=== PATIENT | male | born 1990 | race Caucasian/White ===

== ENCOUNTER → 2017-04-22 12:50 | Outpatient (CLI) | payer BC, SELFPAY | PROVIDERS: Family Provider Family Medicine; PCP Family Medicine; Visit Provider Otolaryngology | DX: J02.9 Acute pharyngitis, unspecified (principal) | CPT/HCPCS: 87070 ==

== ENCOUNTER → 2017-04-28 16:45 | Outpatient (CLI) | payer BC, SELFPAY ==
--- NOTE | 2017-04-28 16:49 | CT_ITS ---
STUDY: CT MAXILLOFACIAL SINUSES REASON FOR EXAM: Male, 27 years old. Sinusitis. RADIATION DOSAGE (If Supplied By Facility): CTDIvol = ( 33.06 ) mGy, DLP = ( 883.43 ) mGycm TECHNIQUE: The patient was scanned in a multi detector CT scanner. High resolution axial imaging was performed without the administration of intravenous contrast material. Sagittal and coronal images were reconstructed. Individualized dose optimization techniques were used for this CT. COMPARISON: None. FINDINGS: FRONTAL SINUSES: Normal aeration, without mucosal inflammatory disease. ETHMOIDAL SINUSES: Normal aeration, without mucosal inflammatory disease. MAXILLARY SINUSES: Near total opacification of the left maxillary sinus. The right maxillary sinus is clear. SPHENOIDAL SINUSES: Normal aeration, without mucosal inflammatory disease. There is patency of the bilateral maxillary infundibuli with normal uncinate processes, ethmoid bullae, and hiatus semilunaris. Normal bilateral middle turbinates. Normal bilateral inferior turbinates. Normal midline nasal septum. There is patency of the bilateral nasal airways. The visualized osseous structures are normal. The visualized bilateral orbital contents are normal. CT/Sinus/Facial Bone IMPRESSION: Near total opacification of the left maxillary sinus. Otherwise, clear sinuses. Electronically Signed: Yuval Charles, at 17:41 EST Tel , Service support ,
== END ==
PROVIDERS: Family Provider Family Medicine; PCP Family Medicine; Visit Provider Otolaryngology
DX: J32.9 Chronic sinusitis, unspecified (principal)
CPT/HCPCS: 70486

== ENCOUNTER → 2019-05-17 09:21 | Outpatient (CLI) | payer BC, SELFPAY ==
[2019-05-01 06:54] VITALS: BMI 28.8
[2019-05-17 13:14] LABS: AST(SGOT) 28 U/L (15-37); Alanine Aminotransfer ALT/SGPT 70 U/L (16-61); Alkaline Phosphatase 64 U/L (45-117); Bilirubin, Direct 0.06 mg/dL (0.00-0.30); GGTP 27 U/L (15-85); Globulin 3.7 g/dL (2.2-4.2); Protein, Total 7.7 g/dL (6.4-8.2)
[2019-05-17 14:00] LABS: Hepatitis B Surface Antibody Non-Reactive; Hepatitis B Surface Antigen Non-Reactive (Nonreactive); Hepatitis C Antibody Non-Reactive (Nonreactive)
[2019-05-18 05:06] LABS: Hepatitis A IgM Antibody Negative (Negative)
[2019-05-18 15:12] LABS: Hepatitis A AB, Total Negative (Negative)
[2019-05-18 17:50] LABS: ANTINUCLEAR ANTIBODIES DIRECT Negative (Negative)
== END ==
PROVIDERS: PCP Family Medicine; Referring Provider Family Medicine; Visit Provider Family Medicine
DX: R74.0 Nonspecific elevation of levels of transaminase and lactic acid dehydrogenase [LDH] (principal)
CPT/HCPCS: 36415; 80076; 82977; 86038; 86706; 86708; 86709; 86803; 87340

== ENCOUNTER → 2020-01-07 14:19 | Outpatient (CLI) | payer OTHER, SELFPAY ==
[2019-08-07 06:27] VITALS: BMI 28.8
== END ==
PROVIDERS: PCP Family Medicine; Referring Provider Family Medicine; Visit Provider Family Medicine
DX: Z20.828 Contact with and (suspected) exposure to other viral communicable diseases (principal)
CPT/HCPCS: 87635; U0003

== ENCOUNTER → 2020-01-20 10:19 | Outpatient (CLI) | payer OTHER, SELFPAY ==
[2019-08-07 06:27] VITALS: BMI 28.8
== END ==
PROVIDERS: PCP Family Medicine; Visit Provider Physician Assistant Surgical
DX: U07.1 COVID-19 (principal)
CPT/HCPCS: 87635; C9803; U0003

== ENCOUNTER 2020-05-29 08:30 | Outpatient (RCR) | payer BC, OTHER, SELFPAY ==
[2019-08-07 06:27] VITALS: BMI 28.8
--- NOTE | 2020-04-24 09:57 | HP.OTEVAL ---
Patient's Visit Information JAYLIN EM III is a 30 year old M, referred to Occupational Therapy by Dr. Tai Robles MD, with a diagnosis of left scaphoid fx. Date of Evaluation: 04/24/20 Occupational Therapist: Tiffanie Quezada, OTR/Omid, CHT - Subjective This 30 year old male was seen for OT eval with dx of scaphoid of left wrist with non union. pt states he fell about a year ago and just thought he sprained his wrist- pt states as his wrist did not improve he went to at [facility] and they referred pt to Dr. Mcgee. pt states had sx on . scapohid screw for repair. pt states he was casted until . pt arrives with orders for ROM no wt.bearing. denies numbness/tingling. pt works for [employer]- will return in June - Pain left wrist 4 Pain Intensity Range: 4 - ROM Forearm: right/left sup/pron is WNL some discomfort with supination Wrist: right 55/70 left 35/35 ROM Comments: Left RD 10 UD 30. rigth UD 25 RD 20. pt demo with limited left wrist ROM - Strength Railroad Carman: right 120 left NT Lateral Pinch: right 22 left NT Tripod Pinch: right 36 left NT Strength Comments: Will test left principal research economist/pinch strength when pt is cleared for wt.bearing. - Sensation Sensation Comments: denies - Quick DASH-Disab of Arm,Shoulder& Hand Quick DASH Score: 58.3325 - Goals Goal:: when released to strengthen At time of dc pt will demo a left principal research economist strength of 85# or greater to return to PLOF. Goal:: pt will demo left wrist flex to 60* and ext to 55* or greater to return pt to PLOF by d/c. pt will demo a increase in RD and UD equal to unaffected wrist by d/c to increase pts ind. with ADls and IADLs. Goal:: pt will report no pain greater than 1/10 with use of left UE with ADLs and IADLs. - Rehabilitation General Assessment: S/P 9 weeks 3 days from Scaphoid middle third fx repair with screw fixation. Pt demo with with limited left wrist ROM and limited use of left UE with ADls and IADLs. Pt would benefit from skilled OT services 1x week for 8 weeks. Therapy will foucs on AROM wrist flex/ext, dart throwers motion, RD/UD and forearm sup/pron. once pt has gaind ROM and cleared by surgon to initiate strengthening. Pt demo understanding and agree to POC. Rehabilitation Potential: Excellent - Anticipated Interventions A/AAROM/PROM, Strengthening, Scar Care, Triggerpoint Release, Modalities, Orthoses, Ergonomic Education - Visit Plan Frequency: 1-2x /Week Duration: 3 Months TEXT: Thank you for the opportunity to evaluate your patient. For Medicare and Medicare HMO plans, please review the plan of care and approve it. It will need to be FAXED BACK to us at [phone] for Medicare purposes. Please let me know if there are questions or concerns regarding this plan of care. Physician Signature: Date:
--- NOTE | 2020-05-08 09:02 | OTREVAL_ITS ---
Dr. Tai Robles MD, It has been my pleasure to treat JAYLIN KEBEDE CONFER III over the last 3 visits for left scaphoid fx. Please see the progress note below for an update on the occupational therapy plan of care! Subjective: pt arrives to session 11 weeks s/p from scaphid fx/ pinning(screw) pt states min pain most of the time- state was driving and turning streering wheel and had a pain sharp/shooting really fast pain. pt states he continues to have click with motion of wrist. Objective/Function: left wrist 55/60. RD 15. UD 25. pt demo good ROM gains in the last two weeks. please advise if pt can progress to wt.B. and strengthening. Plan Frequency: 1-2x /Week Duration: 3 Months Plan: pt to return to for re-eval to see if pt can progress with strengthening. Goals - Goals Patient Goals: Regain Mobility, Regain Strength, Use Hand/Wrist/Arm Normally Again Goal:: when released to strengthen At time of dc pt will demo a left telephone answering service operator strength of 85# or greater to return to PLOF. Goal:: pt will demo left wrist flex to 60* and ext to 55* or greater to return pt to PLOF by d/c. pt will demo a increase in RD and UD equal to unaffected wrist by d/c to increase pts ind. with ADls and IADLs. Goal:: pt will report no pain greater than 1/10 with use of left UE with ADLs and IADLs. Anticipated Interventions Anticipated Interventions: A/AAROM/PROM, Strengthening, Scar Care, Triggerpoint Release, Modalities, Orthoses, Ergonomic Education Please do not hesitate to contact me at [phone] by phone or if you have questions or concerns regarding this new plan of care! Sincerely, Tiffanie Quezada, OTR/L, CHT
--- NOTE | 2020-09-08 07:54 | HP.OT.NRP ---
JAYLIN ARIN CABRERA CONFER III was seen in my office for initial evaluation on 04/24/20. The following Plan of Care was established for this patient: Initial Frequency: 1-2x /Week Initial Duration: 3 Months Plan: hold until bone healing better Anticipated Interventions: A/AAROM/PROM, Strengthening, Scar Care, Triggerpoint Release, Modalities, Orthoses, Ergonomic Education This patient was last seen in our office 05/29/20. Pertinent comments regarding their Occupational therapy will appear below: pt needing new sx pt d/c at this time. At this point I will be discontinuing this patient from occupational therapy. I would be happy to see this patient again in the future if found appropriate by the physician. Thank you! Tiffanie Quezada, OTR/L, CHT
== END 2020-05-29 19:00 | disposition home or self-care (01) ==
LOC: OT 08:30
PROVIDERS: PCP Family Medicine
DX: S62.025D Nondisplaced fracture of middle third of navicular [scaphoid] bone of left wrist, subsequent encounter for fracture with routine healing (principal)
CPT/HCPCS: 97110; 97166; 97530; 97763

== ENCOUNTER → 2021-11-12 | Outpatient (CLI) | payer BC, SELFPAY | END | disposition home or self-care (01) | PROVIDERS: PCP Family Medicine; Visit Provider Family Medicine | DX: L05.91 Pilonidal cyst without abscess (principal) | CPT/HCPCS: 87070; 87205 ==

== ENCOUNTER 2022-02-14 10:04 | Day surgery (SDC) | payer BC, SELFPAY ==
[2022-02-14] VITALS (7 sets, daily range): BP systolic 140–170; BP diastolic 77–99; PULSE 58–74; RESP 16–18; TEMP 36.3–36.9; O2SAT 96–99; BMI 32.9
[2022-02-14] MEDS: Lactated Ringers 1,000 ML 15 ML IV (10:34)
--- NOTE | 2022-02-14 11:08 | PCM.HP.BLA ---
History and Physical Date of Admission: 02/14/22 Intake Vital Signs ? 01/19/2208:42 Height 6 ft 2 in Weight: 245 lb 6 oz BMI 31.5 BP 127/81 H Blood Pressure Location Rt brachial Position Sitting Respiration 18 Pulse 74 Pulse Source NIBP Temp 97.4 F L Temp Source Temporal Pulse Oximetry (%) 98 Oxygen Delivery Method room air Intake Visit Reasons:?F/U PILONIDAL CYST Chief Complaint: pilonidal cyst--discuss surgery Printer Assistant Required: No Is patient in pain?: No Allergies No Known Allergies Allergy (Verified 01/18/22 08:39) Medications multivitamin 1 tab PO DAILY 11/23/20 [History Confirmed 01/18/22] PFSH Medical History? Back pain Pilonidal cyst Pilonidal cyst with abscess Surgical History? History of surgery on left wrist Social History? Smoking Status:? Current every day smoker Smokeless tobacco user:? chewing tobacco alcohol intake:? current Alcohol type: beer and hard liquor HPI HPI HPI: Patient is a 31-year-old male following up for pilonidal cyst.? He says that the inflammation has down and he is feeling much better.? He is also requesting vasectomy at the same time.? Patient reports that his is on board. ROS General General: No weight change, appetite, fatigue, colon cancer, breast cancer or weakness HEENT HEENT: No difficulty swallowing, eye injury, eye surgery, swollen glands or hoarseness Endo Endocrine: No thyroid disease, diabetes mellitus, thyroid cancer, Hair loss, heat intolerance or cold intolerance Skin Skin: No rash or changing moles Breast Breast: No left breast lump, right breast lump, nipple discharge, breast pain, abnormal mammogram, abnormal US or breast enlargement Musc Musculoskeletal: No back problems, arthritis, rheumatoid arthritis, gout or joint pain Cardio Cardiovascular: No murmur, pacemaker, heart disease, atrial fibrillation, high blood pressure, heart attack, heart stent, palpitations, shortness of breat with exertion or chest pain Psych Psychiatric: Yes depression; No anxiety or hearing voices Resp Respiratory: No shortness of breath, No sleep apnea, No cough, No COPD, No asthma, No emphysema and No wheezing Gastro Gastrointestinal: No abdominal pain, No nausea or vomiting, No diarrhea, No constipation, No blood in stool, No acid reflux, No hemorrhoids, No ulcers, No gallbladder problem and No black,tarry stools Abiodun Hematologic: No blood thinners, No blood disorders, No bleeding, No anemia and No blood clots Neuro Neurologic: No system reviewed and no additional complaints, except as documented, No as per HPI, No abnormal gait, No abnormal hearing, No abnormal movements, No abnormal speech, No behavioral changes, No burning sensations, No confusion, No convulsions, No disequilibrium, No dizziness, No localized weakness, No frequent falls, No headache(s), No lack of coordination, No loss of vision, No memory loss, No numbness, No other visual disturbances, No radicular pain, No restless legs, No sensory deficit, No syncope, No tingling, No tremor(s), No weakness and No other Exam Const General: cooperative Orientation: alert and oriented x3 [facility] Head: normal to inspection Neck Neck: normal visual inspection and full ROM Chest Chest palpation & inspection: normal inspection of the chest Resp Effort & Inspection: normal respiratory effort Auscultation: clear to auscultation bilaterally Cardio Rate: regular rate Rhythm: regular rhythm GI Inspection: non-distended Palpation: soft and nontender Other: Patient has a pilonidal cyst with 3 pilonidal sinuses Skin General: no rashes or lesions noted Neuro General: patient alert and patient oriented x3 Extrem General: full ROM Psych Appearance: grossly normal Mental Status: mental status grossly normal Assessment and Plan Assessment and Plan (1) Pilonidal cyst: ?Status:?Acute ?Plan: The patient's inflammation around his pilonidal cyst has decreased.? I discussed pilonidal cystectomy with the patient with hopeful closure of the incision.? I also discussed possible drain placement or need for packing.? I discussed the procedure as well as the risks including but allergy to bleeding, infection, need for wound packing.? Patient understands and is willing to proceed with pilonidal cystectomy. (2) Sterilization consult: ?Status:?Acute ?Plan: I discussed bilateral partial vasectomy with the patient in detail. I discussed the procedure in detail as well as the risks of the procedure. I discussed the risks including but not limited to bleeding, infection, injury to spermatic cord, spermatocele. I discussed that this procedure is not perfect and there was a very small failure rate and I also discussed that this is a nonreversible procedure and that he would not be immediately sterile. I discussed that he would be considered sterile after two consecutive negative semen analysis tests. I recommended that the patient continue to use control until these tests are performed. The patient understands the risks and has has agreed to proceed with bilateral partial vasectomy in the operating room at the same time of his pilonidal cystectomy. Jose Sarah MD Pager: [facility] [address] [place] [address] Office: I have examined the patient and the H&P has been reviewed. There are no clinical changes since date of exam.
[2022-02-14] MEDS: Cefazolin 2 GM in 0.9% Normal Saline 100 ML IV (11:39)
--- NOTE | 2022-02-14 11:40 | VAS_PTH ---
PATIENT: JAYLIN AGUILAR III LOC: [facility] [place] U#:[id number] AGE/SX: 31/M ROOM: RE02/14/[address]: Dr. Jose Sarah MD : 1990 BED: DIS: 02/14/2022 SPEC #: [id number] RECD: 02/14/22 13:36 STATUS: PEE REQ #: [id number] OSEI: 02/14/22 11:[address]: Jose Sarah DEPT: SURGICAL PATHOLOGY RECD BY: Savana Zamora ENTERED: 02/15/22 07:37 SP TYPE: VAS OTHR DR: Dr. Tai Robles MD Tissues: A - Vas deferens, NOS B - Vas deferens, NOS C - PILONIDAL TISSUE Procedures: Surgery Specimen Level II Surgery Specimen Level III HEADER OPERATION: Pilonidal cyst excision PRE-OP DIAGNOSIS: Pilonidal cyst TISSUE SUBMITTED: A - Right vas deferens segment, B - Left vas deferens segment, C - Pilonidal cyst MICROSCOPIC DIAGNOSIS A. Right vas deferens, segmental vasectomy: Complete cross-section of vas deferens with no pathologic change. B. Left vas deferens, segmental vasectomy: Complete cross-section of vas deferens with no pathologic change. C. Pilonidal cyst, excision: Fibrofatty tissue with chronic inflammation. AM:suzette 02/17/2022 MICROSCOPIC DESCRIPTION Slides are reviewed. GROSS DESCRIPTION A - Received is one container designated right vas deferens segment. The specimen consists of a tubular segment of leon soft tissue measuring 0.8 cm in length and 0.4 cm in diameter. The specimen is sectioned and submitted entirely in one cassette. B - Received is one container designated left vas deferens segment. The specimen consists of a tubular segment of leon soft tissue measuring 0.8 cm in length and 0.4 cm in diameter. The specimen is sectioned and submitted entirely in one cassette. C - Received in fixative is one container labeled with the patient's name and designated pilonidal cyst. The specimen consists of multiple pieces of leon-yellow to hemorrhagic soft tissue that in aggregate measure 3.5 x 3 x 1 cm. No mass lesion is identified. Building Specialist sections are submitted in two cassettes. / SJ:suzette 02/15/2022 The rest of the specimen is submitted in one more cassette. / SJ:suzette 02/16/2022 TC:3 CPT: 79139 x2, 03099
[2022-02-14] MEDS: Bupivacaine Mpf 0.5% 30 ML VIAL (11:55)
--- NOTE | 2022-02-14 13:25 | PCM.OPRPT ---
Report of Operation Date of Procedure: 02/14/22 Pre-Operative Diagnosis: 1. Encounter for sterilization 2. Pilonidal cyst Post-Operative Diagnosis: Same Surgery/Procedure Performed:: 1. Bilateral partial vasectomy 2. Pilonidal cystectomy Specimen's removed: 1. Bilateral vas 2. Pilonidal cyst Description of Procedure: Patient was brought back to the operating room and general anesthesia was induced. The scrotum was prepped and draped in usual sterile fashion. On the right side a small incision was made in the side of the scrotum and the vas was grasped. It was dissected free and then clamped. A segment of vas was sharply removed and then a 3-0 chromic suture ligature was used on either end to ligate the free ends. Next they were returned to the scrotum and there was good hemostasis and the scrotal incision was closed with a 3-0 chromic suture. Next on the opposite side an incision was made in the left side of the scrotum and the vas was grasped and brought through the incision and dissected free from the surrounding structures. The vas was clamped proximally and distally and then a segment was removed and both ends were suture-ligated using 3-0 chromic suture. There is good hemostasis. The scrotum was closed with 3-0 chromic suture. Next the patient was placed in a prone jackknife position. The pilonidal area was cleared of hair and then prepped. An incision was made left of the midline and deepened to subcutaneous tissue. The sinus that was running the left of the incision was found and traced and the cyst was removed. Next dissection was performed directly deep to the sinuses and sinuses were removed and the entire cyst was removed. The cavity was irrigated and suctioned dry and hemostasis was obtained using electrocautery. The skin was closed with interrupted 3-0 Vicryl suture and then interrupted 3-0 nylon suture. Bandages were applied. Patient was then awoken and taken to PACU in stable condition. Admit VTE Documentation VTE Present on Admission: Yes
--- NOTE | 2022-02-14 13:29 | DCINST_ITS ---
Discharge Instructions Diet Discharge Diet: Light diet - advance as tolerated Activity Discharge Activity: May Not Drive (For 2 to 3 days or while on narcotic medications) and May Shower (Tomorrow. Towel dry the scrotal incisions and the backside. No creams or powders over the incisions.) May resume sexual activity in: 1 week Lifting Restrictions: 15 pounds for 1 week Additional Activity Instructions:: Sit on soft surfaces. Reduce spreading of the buttocks is much as possible. Dressing / Incision Call your doctor if your incision/area has: Continuous Slow Oozing, Sudden Increased Bleeding, Increased Pain/ Swelling, Increased Redness, Foul Smelling Discharge and Swelling at the incision site Call your doctor if you observe: Fever of 101 or Higher Change Dressing in: 1 day Cleanse incision/area with: Soap & Water Follow Up Care Please Follow Up With: Jose Sarah MD When: Please call to schedule 1 week follow up appointment. [phone] Test Results: Test results from this visit will be discussed in further detail at your follow- up appointment, if applicable. Discharge Plan Admission Attending Provider: Jose Sarah Primary Care Provider: Tai Robles Discharge Orders/Prescriptions Prescriptions: New oxycodone 5 mg tablet 5 - 10 mg PO Q6H PRN (Reason: pain) 5 Days Qty: 30 0RF No Action multivitamin Tablet 1 tab PO DAILY escitalopram oxalate [Lexapro] 10 mg tablet 10 mg PO DAILY Label Comments: Take 1 tablet by mouth at bedtime take with 5mg tab for a total of 15mg Vyvanse 40 mg capsule 20 mg PO DAILY Label Comments: Take 1 capsule every morning Referrals / Follow Up: Tai Robles MD [Primary Care Provider] - Disposition Disposition (needs filled in before D/C Order can be placed): Home, Self Care
== END 2022-02-14 14:45 | disposition home or self-care (01) ==
LOC: SDC 10:05 → AC 10:06
PROVIDERS: PCP Family Medicine; Referring Provider Surgery; Visit Provider Surgery
PROC: (CPT 55250; principal; 2022-02-14 11:25)
PROC: (CPT 55250; 2022-02-14 11:25)
DX: L05.91 Pilonidal cyst without abscess (principal); F17.200 Nicotine dependence, unspecified, uncomplicated; Z30.2 Encounter for sterilization; K21.9 Gastro-esophageal reflux disease without esophagitis; F41.9 Anxiety disorder, unspecified; F32.A Depression, unspecified
CPT/HCPCS: 55250; 11771; 00921; 88302; 88304; J7120; J2405

== ENCOUNTER → 2022-03-11 | Outpatient (CLI) | payer BC, SELFPAY ==
[2022-03-11 11:13] LABS: Semen Analysis Post Vas PRELIMINARY PRESENT
[2022-03-15 12:11] LABS: Pathologist Review Reviewed
== END | disposition home or self-care (01) ==
LOC: LABSPEC 08:28
PROVIDERS: PCP Family Medicine; Referring Provider Surgery; Visit Provider Surgery
DX: Z30.2 Encounter for sterilization (principal)
CPT/HCPCS: 89321

== ENCOUNTER → 2022-03-29 | Outpatient (CLI) | payer BC, SELFPAY ==
[2022-03-29 13:28] LABS: Semen Analysis Post Vas ABSENT
[2022-03-31 10:34] LABS: Pathologist Review Reviewed
== END | disposition home or self-care (01) ==
LOC: LABSPEC 09:58
PROVIDERS: PCP Family Medicine; Referring Provider Surgery; Visit Provider Surgery
DX: Z98.52 Vasectomy status (principal)
CPT/HCPCS: 89321

== ENCOUNTER → 2022-05-03 | Outpatient (CLI) | payer BC, SELFPAY ==
[2022-05-03 13:02] LABS: Semen Analysis Post Vas ABSENT
[2022-05-05 09:11] LABS: Pathologist Review Reviewed
== END | disposition home or self-care (01) ==
LOC: LABSPEC 10:29
PROVIDERS: PCP Family Medicine; Visit Provider Surgery
DX: Z98.52 Vasectomy status (principal)
CPT/HCPCS: 89321